=== PATIENT | female | born 2000 | race Two or more races ===

== ENCOUNTER 2021-08-11 18:00 | Emergency (ER) | payer MEDICAID ==
[~2021-08-11] VITALS: Ht 162.6 cm; Wt 63.5 kg
--- NOTE | 2021-08-11 18:24 | NUR ---
PT BIBSELF C/O LOWER ABDOMINAL PAIN SINCE THIS MORNING. PT A/OX4. TOLERATING R/A WELL WITH NO SOB AT 98%.
--- NOTE | 2021-08-11 18:31 | NUR ---
URINE COLLECTED AND SENT TO LAB
--- NOTE | 2021-08-11 20:38 | NUR ---
IV LINE ESTABLISHED L AC 20G CONVERTED TO SALINE LOCK. LABS WERE COLLECTED AND SENT.
[2021-08-11 20:53] LABS: CALCIUM, SERUM 8.8 mg/dL (8.5-10.1); CREATININE 0.8 mg/dL (0.6-1.3); POTASSIUM 4.2 mmol/L (3.5-5.1)
[2021-08-11 20:58] LABS: BASOPHILS % (AUTO) 0.5 % (0.0-2.0); EOSINOPHILS % (AUTO) 2.1 % (0.0-6.0); HEMATOCRIT 43 % (33-45); HEMOGLOBIN 14.3 g/dL (11.5-14.8); LYMPHOCYTES % (AUTO) 34.1 % (20.0-44.0); MEAN CORPUSCULAR HGB CONC 34 g/dl (31.0-36.0); MEAN CORPUSCULAR VOLUME 95 fL (82-100); MONOCYTES # (AUTO) 0.7 K/uL (0.1-1.30); MONOCYTES % (AUTO) 7.6 % (2.0-12.0); NEUTROPHILS # (AUTO) 4.9 K/uL (1.8-8.9); NEUTROPHILS % (AUTO) 55.7 % (43.0-81.0); PLATELET COUNT (AUTO) 182 K/uL (150-450); WHITE BLOOD COUNT (AUTO) 8.8 K/uL (4.3-11.0)
[2021-08-11 21:00] LABS: ALBUMIN 4.1 g/dL (3.4-5.0); BILIRUBIN,DIRECT 0.2 mg/dL (0.0-0.2); BILIRUBIN,TOTAL 0.4 mg/dL (0.2-1.0); TOTAL PROTEIN, SERUM 7.6 g/dL (6.4-8.2)
--- NOTE | 2021-08-11 21:04 | NUR ---
ULTRASOUND AT BEDSIDE
--- NOTE | 2021-08-11 21:18 | NUR ---
Nick palmer in [facility] - 08/11/21 at 2119 by RL ULTRASOUND AT BEDSIDE
--- NOTE | 2021-08-11 21:29 | NUR ---
PT MOTHER AT BEDSIDE
[2021-08-11 23:02] LABS: BILIRUBIN,URINE NEGATIVE (NEGATIVE); COLOR,URINE YELLOW (YELLOW); LEUKOCYTE ESTERASE ,URINE NEGATIVE (NEGATIVE); NITRITE, URINE POSITIVE (NEGATIVE); PROTEIN,URINE NEGATIVE (NEGATIVE); UGLUCOSE NEGATIVE (NEGATIVE)
[2021-08-11 23:08] LABS: BACTERIA,URINE Many /HPF (None Seen); RBC,URINE 0-2 /HPF (0-2); SQUAMOUS EPITHELIAL CELL,UR Few /HPF (None Seen); WBC,URINE 0-2 /HPF (0-3)
--- NOTE | 2021-08-12 00:07 | NUR ---
IV removed. Catheter intact and site benign. Pressure and 4x4 applied to site. No bleeding noted.
[2021-08-12] MEDS ORDERED: IBUP-1955 PO (00:12)
--- NOTE | 2021-08-12 00:15 | NUR ---
Patient discharged to home in stable condition. rX AND Written and verbal after care instructions given. Patient verbalizes understanding of instruction.
[2021-08-12] MEDS ORDERED: CEPH500C2 PO (00:17)
[2021-08-12] MEDS ORDERED: CEPHALEXIN MONOHYDRATE 500 MG CAPSULE PO ONE (00:20)
[2021-08-12 00:27] VITALS: BP 112/68
== END 2021-08-12 00:27 | disposition home or self-care (01) ==
LOC: ER 18:17
DX: R10.11 Right upper quadrant pain (principal); R82.71 Bacteriuria
CPT/HCPCS: 36415; 76705; 80048; 80076; 81001; 83690; 84703; 85025; 87077; 87086; 87186; 99284; J7030